=== PATIENT | female | born 1975 | race Two or more races ===

== ENCOUNTER 2021-11-03 10:17 | Emergency (ER) | payer OTHER ==
[~2021-11-03] VITALS: Ht 175.3 cm; Wt 83.1 kg
[2021-11-03 10:18] VITALS: BP 122/72
[2021-11-03] MEDS ORDERED: FAMOTIDINE 20 MG/2 ML VIAL IVP ONE (10:45)
[2021-11-03] MEDS ORDERED: IV RINGERS,LACTATED 1000ML 1,000 ML IV ONE (10:45)
[2021-11-03] MEDS ORDERED: KETOROLAC 15 MG/ML VIAL. IVP ONE (10:45)
[2021-11-03] MEDS ORDERED: ONDANSETRON PF 4 MG/2 ML VIAL. IVP ONE (10:45)
[2021-11-03] MEDS ORDERED: PANTOPRAZOLE IV PUSH 40 MG VIAL. IVP ONE (10:45)
[2021-11-03 11:13] LABS: BASO % 1 % (0-3); EOS # 0.1 x10^3/uL (0.0-0.7); EOS % 2 % (0-3); HEMATOCRIT 35.8 % (36.0-47.0); HEMOGLOBIN 12.5 g/dL (12.0-15.5); LYMPH # 1.1 x10^3/uL (1.0-4.8); LYMPH % 43 % (24-48); MEAN CORPUSCULAR HEMOGLOBIN 29 pg (25-35); MEAN CORPUSCULAR HGB CONC 35 g/dL (31-37); MEAN CORPUSCULAR VOLUME 84 fL (79-100); MONO # 0.2 x10^3/uL (0.0-1.1); MONO % 8 % (0-9); NEUT # 1.2 x10^3/uL (1.8-7.7); NEUT % 46 % (31-73); PLATELET COUNT 104 x10^3/uL (140-400); RED BLOOD COUNT 4.25 x10^6/uL (3.50-5.40); RED CELL DISTRIBUTION WIDTH 14.2 % (11.5-14.5); WHITE BLOOD COUNT 2.6 x10^3/uL (4.0-11.0)
[2021-11-03 11:21] LABS: CALCIUM 8.5 mg/dL (8.5-10.1); CREATININE 0.8 mg/dL (0.6-1.0); GFR 76.6; POTASSIUM 3.8 mmol/L (3.5-5.1)
--- NOTE | 2021-11-03 11:22 | RAD ---
EXAM: AP View of the chest DATE: 11/03/2021 10:55 AM INDICATION: Reason: upper abd pain, neck pain COMPARISON: No Prior FINDINGS: The heart is not enlarged. Mediastinal and hilar contours are normal. No focal parenchymal airspace opacity. No pleural effusion or pneumothorax. IMPRESSION: 1. No radiographic evidence for acute cardiopulmonary process. Electronically signed by: Dong Montesinos MD (11/03/2021 11:20 AM) [id number]
[2021-11-03 11:26] LABS: ALBUMIN 3.6 g/dL (3.4-5.0); TOTAL BILIRUBIN 0.4 mg/dL (0.2-1.0); TOTAL PROTEIN 7.2 g/dL (6.4-8.2)
[2021-11-03] MEDS ORDERED: CONTRAST GIVEN. MC PRN (11:45)
[2021-11-03] MEDS ORDERED: IOHEXOL 300 MG/ML 100ML VIAL. IV ONE (11:45)
[2021-11-03 12:12] LABS: BACTERIA,URINE 0 /HPF (0-FEW); RBC,URINE 0 /HPF (0-2); WBC,URINE OCC /HPF (0-4)
--- NOTE | 2021-11-03 12:16 | PHYS DOC ---
Past Medical History Past Medical History: No Pertinent History Past Surgical History: No Surgical History Alcohol Use: None Drug Use: None General Adult EDM: Chief Complaint: ABDOMINAL PAIN HPI: HPI: Patient is a 46 year old female who presents with epigastric pain and nausea that began 4 days ago. She is unable to tolerate food or liquids, as they "come back up." Yesterday, she reports having dark stool. Patient does not take iron supplements and has not taken Pepto-Bismol. Patient denies chest pain, palpitat ions, peripheral edema, hematemesis or vomiting, diarrhea, constipation. Patient speaks Swahili and [employer] manager life phone was used. Review of Systems: Review of Systems: Constitutional: Denies fever, chills or generalized weakness Eyes: Denies change in visual acuity, visual field deficits or discharge HENT: Denies ear pain, nasal congestion or sore throat Respiratory: See HPI Cardiovascular: See HPI GI: See HPI : Denies dysuria or hematuria Musculoskeletal: Denies back pain or joint pain Integument: Denies rash or other skin lesion Neurologic: Denies headache, focal weakness or sensory changes Heart Score: C/O Chest Pain: No Current Medications: Current Medications Medications (Trade) Dose Ordered Sig/Gianni Start Time Stop Time Status Last Admin Dose Admin Famotidine (Pepcid Vial) 20 mg 1X ONCE 11/03/21 10:45 11/03/21 10:50 DC 11/03/21 11:46 20 MG Info (CONTRAST GIVEN -- Rx MONITORING) 1 each PRN DAILY PRN 11/03/21 11:45 11/05/21 11:44 Iohexol (Omnipaque 300 Mg/ml) 75 ml 1X ONCE 11/03/21 11:45 11/03/21 11:46 DC 11/03/21 11:56 75 ML Ketorolac Tromethamine (Toradol 15mg Vial) 15 mg 1X ONCE 11/03/21 10:45 11/03/21 10:50 DC 11/03/21 11:46 15 MG Ondansetron HCl (Zofran) 4 mg 1X ONCE 11/03/21 10:45 11/03/21 10:50 DC 11/03/21 11:45 4 MG Pantoprazole Sodium (PROTONIX VIAL for IV PUSH) 40 mg 1X ONCE 11/03/21 10:45 11/03/21 10:50 DC 11/03/21 11:46 40 MG Ringer's Solution 1,000 ml @ 1,000 mls/hr 1X ONCE 11/03/21 10:45 11/03/21 11:44 DC 11/03/21 11:46 1,000 MLS/HR Allergies: Allergies: Allergies Coded Allergies Type Severity Reaction Last Updated Verified No Known Drug Allergies 11/03/21 No Physical Exam: PE: Constitutional: Well developed, well nourished, no acute distress, non-toxic appearance. HENT: Normocephalic, atraumatic, bilateral external ears normal, oropharynx moist, no oral exudates, nose normal. Eyes: EOMI, conjunctiva normal, no discharge. Neck: Normal range of motion, trachea midline, no masses, no stridor. Cardiovascular: Heart regular rate and rhythm. No apparent murmurs, rubs or gallops. Lungs & Thorax: Equal thoracic expansion, no increased work of breathing, breath sounds clear to auscultation in all lung granado. Abdomen: Bowel sounds normal, soft, epigastric tenderness without rebound or guarding, negative Alcantar's sign, no masses, no pulsatile masses. POONAM: No external hemorrhoids or isabelle blood appreciated. Sphincter tone intact. No palpable masses in rectal vault. Skin: Warm, dry, no erythema, no rash. Back: No tenderness, no CVA tenderness. Extremities: No cyanosis, no clubbing, ROM intact, no edema. Neurologic: Alert and oriented x4, normal motor function, normal sensory function, no focal deficits noted. Current Patient Data: Labs: Laboratory Tests Test 11/03/21 10:34 11/03/21 10:55 11/03/21 11:03 11/03/21 13:12 Urine Collection Type Unknown Urine Color (Auto) Colorless Urine Turbidity Clear Urine pH (Auto) 7.0 (<5.0-8.0) Urine Specific Landers 1.007 (1.000-1.030) Urine Protein (Auto) Negative mg/dL (Negative) Urine Glucose (Auto)(UA) Negative mg/dL (Negative) Urine Ketones (Auto) Negative mg/dL (Negative) Urine Blood (Auto) Negative (Negative) Urine Nitrite Negative (Negative) Urine Bilirubin (Auto) Negative (Negative) Urine Urobilinogen (Auto) Normal mg/dL (Normal) Urine Leukocyte Esterase (Auto) Small (Negative) Urine RBC 0 /HPF (0-2) Urine WBC Occ /HPF (0-4) Urine Squamous Epithelial Cells Few /LPF Urine Bacteria 0 /HPF (0-FEW) White Blood Count 2.6 x10^3/uL (4.0-11.0) Red Blood Count 4.25 x10^6/uL (3.50-5.40) Hemoglobin 12.5 g/dL (12.0-15.5) Hematocrit 35.8 % (36.0-47.0) Mean Corpuscular Volume 84 fL (79-100) Mean Corpuscular Hemoglobin 29 pg (25-35) Mean Corpuscular Hemoglobin Concent 35 g/dL (31-37) Red Cell Distribution Width 14.2 % (11.5-14.5) Platelet Count 104 x10^3/uL (140-400) Neutrophils (%) (Auto) 46 % (31-73) Lymphocytes (%) (Auto) 43 % (24-48) Monocytes (%) (Auto) 8 % (0-9) Eosinophils (%) (Auto) 2 % (0-3) Basophils (%) (Auto) 1 % (0-3) Neutrophils # (Auto) 1.2 x10^3/uL (1.8-7.7) Lymphocytes # (Auto) 1.1 x10^3/uL (1.0-4.8) Monocytes # (Auto) 0.2 x10^3/uL (0.0-1.1) Eosinophils # (Auto) 0.1 x10^3/uL (0.0-0.7) Basophils # (Auto) 0.0 x10^3/uL (0.0-0.2) Sodium Level 140 mmol/L (136-145) Potassium Level 3.8 mmol/L (3.5-5.1) Chloride Level 105 mmol/L (98-107) Carbon Dioxide Level 28 mmol/L (21-32) Anion Gap 7 (6-14) Blood Urea Nitrogen 8 mg/dL (7-20) Creatinine 0.8 mg/dL (0.6-1.0) Estimated GFR (Cockcroft-Gault) 76.6 BUN/Creatinine Ratio 10 (6-20) Glucose Level 96 mg/dL (70-99) Calcium Level 8.5 mg/dL (8.5-10.1) Total Bilirubin 0.4 mg/dL (0.2-1.0) Aspartate Amino Transf (AST/SGOT) 20 U/L (15-37) Alanine Aminotransferase (ALT/SGPT) 15 U/L (14-59) Alkaline Phosphatase 60 U/L (46-116) Troponin I High Sensitivity 5 ng/L (4-50) Total Protein 7.2 g/dL (6.4-8.2) Albumin 3.6 g/dL (3.4-5.0) Albumin/Globulin Ratio 1.0 (1.0-1.7) Lipase 116 U/L (73-393) Bedside Urine HCG, Qualitative Hcg negative (Negative) Stool Occult Blood Negative (NEG) Laboratory Tests 11/03/21 10:55 Laboratory Tests 11/03/21 10:55 Vital Signs: Vital Signs Date Time Temp Pulse Resp B/P (MAP) Pulse Ox O2 Delivery O2 Flow Rate FiO2 11/03/21 10:18 98.0 80 18 122/72 (89) 100 Room Air 98.0 EKG: EKG: EKG Interpreted by Dr. Mederos at 1145: Regular rate and rhythm 56 bpm with no ectopic beats. WI 186 ms/QT 450 ms/QTc 437 ms. No STEMI. Radiology/Procedures: Radiology/Procedures: PROCEDURE: PORTABLE CHEST 1V EXAM: AP View of the chest DATE: 11/03/2021 10:55 AM INDICATION: Reason: upper abd pain, neck pain COMPARISON: No Prior FINDINGS: The heart is not enlarged. Mediastinal and hilar contours are normal. No focal parenchymal airspace opacity. No pleural effusion or pneumothorax. IMPRESSION: 1. No radiographic evidence for acute cardiopulmonary process. Electronically signed by: Dong Montesinos MD (11/03/2021 11:20 AM) [id number] PROCEDURE: CT ABD PELV W/ IV CONTRST ONLY Exam: CT abdomen/pelvis with intravenous contrast Indication: Nausea, epigastric pain, melena Comparison: None Technique: Helical CT imaging performed of the abdomen and pelvis after the intravenous administration of 75 mL Isovue-300 contrast. Sagittal and coronal reformats were obtained. One or more of the following individualized dose reduction techniques were utilized for this examination: 1. Automated exposure control 2. Adjustment of the mA and/or kV according to patient size 3. Use of iterative reconstruction technique. Findings: Lower chest: Lung bases are clear. The heart is normal in size. Liver: Normal. Gallbladder/Biliary Tree: Normal. Pancreas: Normal. Spleen: The spleen is mildly enlarged measuring 14 cm in length. Adrenal Glands: Normal. Kidneys/Ureters/Bladder: Normal. No hydronephrosis. Reproductive Organs: Uterus is present. No adnexal mass. Stomach, small bowel, and colon: The stomach, small bowel, and colon are normal in appearance. Normal appendix. Vasculature: No aortic aneurysm. Lymph Nodes: No lymphadenopathy. Peritoneum and retroperitoneum: Trace free fluid in the pelvis. No free air. Bones: No acute osseous abnormality. Miscellaneous: None. IMPRESSION: 1. No acute abnormality in the abdomen and pelvis. 2. Mild splenomegaly. Electronically signed by: Joseline Butt MD (11/03/2021 12:26 PM) [id number] Course & Med Decision Making: Course & Med Decision Making Pertinent Labs and Imaging studies reviewed. (See chart for details) Patient exam and workup does not reveal any acute conditions requiring emergent attention. Patient's pain is improved while in the department. Hemeoccult test is negative. Patient is instructed to follow up with gastroenterology regarding further complaints related to reflux/regurgitation. Also, advised patient visit her primary care doctor for follow up labs regarding her CBC results. Return precautions were provided. Patient understands and is agreeable to discharge plan. Dragon Disclaimer: Dragon Disclaimer: This electronic medical record was generated, in whole or in part, using a voice recognition dictation system. Departure Departure Impression: Primary Impression: Gastritis Qualified Codes: K29.60 - Other gastritis without bleeding Additional Impressions: Leukocytopenia, unspecified Platelets decreased Disposition: 01 HOME / SELF CARE / HOMELESS Condition: STABLE Referrals: NO PCP (PCP) RADHA THAPA MD Patient Instructions: Complete Blood Count, Gastritis, Adult, [id number] Additional Instructions: EMERGENCY DEPARTMENT GENERAL DISCHARGE INSTRUCTIONS Thank you for coming to [facility] Emergency Department (ED) today and trusting us with you care. We trust that you had a positive experience in our Emergency Department. If you wish to speak to the department management, you may call the director at . YOUR FOLLOW UP INSTRUCTIONS ARE FOLLOWS: 1. Follow up with your primary care doctor. If you do not have a primary doctor, please ask for a resource list of physicians or clinics that may be able to assist you with follow up care. 2. The emergency provider has interpreted your imaging studies, if any were ordered. The radiology contract administration specialist also reviewed them. If there is a change in the findings, you will be notified in 48 hours when at all possible. 3. If a lab test or culture has been done, your results will be reviewed and you will be notified if you need a change in treatment. 4. Follow instructions verbalized to you and refer to the printouts if needed. ADDITIONAL INSTRUCTIONS AND INFORMATION: 1. Your care today has been supervised by a physician who is specially trained in emergency care. Many problems require more than one evaluation for a complete diagnosis and treatment. We recommend that you schedule your follow up appointment as recommended to ensure complete treatment of you illness or injury. If you are unable to obtain follow up care and continue to have a problem, or if your condition worsens, we recommend that you return to the ED. 2. We are not able to safely determine your condition over the phone nor are we able to give sound medical advice over the phone. For these safety reasons, if you call for medical advice we will ask you to come to the ED for further evaluation. 3. If you have any questions regarding these discharge instructions please call the ED at . SAFETY INFORMATION: In the interest of safety, wellness, and injury prevention; we encourage you to wear your seat belt, if you smoke; quite smoking, and we encourage family to use a protective helmet for bicycling and other sporting events that present an increased risk for head injury. IF YOUR SYMPTOMS WORSEN OR NEW SYMPTOMS DEVELOP, OR YOU HAVE CONCERNS ABOUT YOUR CONDITION; OR IF YOUR CONDITION WORSENS WHILE YOU ARE WAITING FOR YOUR FOLLOW UP APPOINTMENT; EITHER CONTACT YOUR PRIMARY CARE DOCTOR, THE PHYSICIAN WHOSE NAME AND NUMBER YOU WERE GIVEN, OR RETURN TO THE ED IMMEDIATELY. Scripts Ondansetron (ONDANSETRON ODT) 4 Mg Tab.rapdis 1 TAB PO PRN Q6-8HRS, #20 TAB Prov: THOMAS HOFFMANN 11/03/21 Omeprazole (OMEPRAZOLE) 20 Mg Tablet.dr 1 TAB PO DAILY, #30 TAB 0 Refills Prov: THOMAS HOFFMANN 11/03/21 THOMAS HOFFMANN November 03, 2021 12:16
--- NOTE | 2021-11-03 12:29 | RAD ---
Exam: CT abdomen/pelvis with intravenous contrast Indication: Nausea, epigastric pain, melena Comparison: None Technique: Helical CT imaging performed of the abdomen and pelvis after the intravenous administratio n of 75 mL Isovue-300 contrast. Sagittal and coronal reformats were obtained. One or more of the following individualized dose reduction techniques were utilized for this examinat ion: 1. Automated exposure control 2. Adjustment of the mA and/or kV according to patient size 3. Use of iterative reconstruction technique. Findings: Lower chest: Lung bases are clear. The heart is normal in size. Liver: Normal. Gallbladder/Biliary Tree: Normal. Pancreas: Normal. Spleen: The spleen is mildly enlarged measuring 14 cm in length. Adrenal Glands: Normal. Kidneys/Ureters/Bladder: Normal. No hydronephrosis. Reproductive Organs: Uterus is present. No adnexal mass. Stomach, small bowel, and colon: The stomach, small bowel, and colon are normal in appearance. Normal appendix. Vasculature: No aortic aneurysm. Lymph Nodes: No lymphadenopathy. Peritoneum and retroperitoneum: Trace free fluid in the pelvis. No free air. Bones: No acute osseous abnormality. Miscellaneous: None. IMPRESSION: 1. No acute abnormality in the abdomen and pelvis. 2. Mild splenomegaly. Electronically signed by: Joseline Butt MD (11/03/2021 12:26 PM) [id number]
[2021-11-03 13:28] LABS: FECAL OB PT NEGATIVE (NEG)
[2021-11-03] MEDS ORDERED: ONDA4TAB12 PO (13:39)
[2021-11-03] MEDS ORDERED: OMEP20TA91 PO (13:39)
--- NOTE | 2021-11-04 19:11 | EKG ---
[facility] [address] [place] [address] Test Date: 2021-11-03 Test Time: 11:42:04 Pat Name: YANNICK MARLEY Department: Room: Gender: F Mechatronics Technician: : 1975 Requested By: THOMAS HOFFMANN Order Number: [id number] Reading MD: Measurements Intervals [place] Rate: 56 P: 46 HI: 186 QRS: 28 QRSD: 80 T: 26 QT: 450 QTc: 437 Interpretive Statements SINUS RHYTHM OTHERWISE NORMAL ECG RI6.02 No previous ECG available for comparison
== END 2021-11-03 13:52 | disposition home or self-care (01) ==
LOC: ER 10:17
DX: K29.60 Other gastritis without bleeding (principal); D69.6 Thrombocytopenia, unspecified; R07.89 Other chest pain
CPT/HCPCS: 36415; 71045; 74177; 80053; 81001; 81025; 82274; 83690; 84484; 85025; 87086; 93005; 96361; 96374; 96375; 99285; C9113; J1885; J2405; J3490; J7120; Q9967